=== PATIENT | female | born 1985 | race American Indian/Alaskan Native ===

== ENCOUNTER 2019-07-01 12:36 | Emergency (ER) | payer OTHER ==
[2019-07-01 12:53] VITALS: BP 109/51
--- NOTE | 2019-07-01 12:53 | Event Note ---
ED Screening Note Date of service: 07/01/19 Time: 12:53 ED Screening Note: This is a 33 y.o. F. that presents to the ER with right sided dental pain for 1. Patient states she woke up with right sided facial swelling. This initial assessment/diagnostic orders/clinical plan/treatment(s) is/are subject to change based on patients health status, clinical progression and re- assessment by fellow clinical providers in the ED. Further treatment and workup at subsequent clinical providers discretion. Patient/guardian urged not to elope from the ED as their condition may be serious if not clinically assessed and managed. Initial orders include:
--- NOTE | 2019-07-01 14:21 | Emergency Department Report ---
ED ENT HPI - General Chief complaint: Dental/Oral Stated complaint: TOOTHACHE PAIN Time Seen by Provider: 07/01/19 12:50 Source: patient Mode of arrival: Ambulatory Limitations: No Limitations - History of Present Illness Initial comments: 33-year-old female presents to ED with toothache. Patient states she has 2 broken molars on the right lower side. She reports she began having pain and swelling in that area since yesterday. Patient reports she called her dentist today, however did not get enhances so she decided to come to the ER. Patient denies fever. MD complaint: tooth pain -: days(s) (1) Location: tooth # (32, 30) Severity scale (0 -10): 3 Quality: aching Consistency: constant Improves with: none Worsens with: eating Context- Dental: history of dental caries Associated Symptoms: toothache. denies: fever, pain with swallowing, sore throat - Related Data Previous Rx's Medication Instructions Recorded Last Taken Type Amoxicillin [Trimox CAP] 500 mg PO BID #20 capsule 05/23/19 Unknown Rx traMADol [Ultram] 50 mg PO Q6HR PRN #10 tablet 05/23/19 Unknown Rx Naproxen [Naprosyn] 500 mg PO BID #20 tablet 07/01/19 Unknown Rx Penicillin V Potassium 500 mg PO TID 10 Days #30 tablet 07/01/19 Unknown Rx Allergies Allergy/AdvReac Type Severity Reaction Status Date / Time No Known Allergies Allergy Unverified 05/23/19 15:16 ED Dental HPI - General Chief complaint: Dental/Oral Stated complaint: TOOTHACHE PAIN Time Seen by Provider: 07/01/19 12:50 Source: patient Mode of arrival: Ambulatory Limitations: No Limitations - Related Data Previous Rx's Medication Instructions Recorded Last Taken Type Amoxicillin [Trimox CAP] 500 mg PO BID #20 capsule 05/23/19 Unknown Rx traMADol [Ultram] 50 mg PO Q6HR PRN #10 tablet 05/23/19 Unknown Rx Naproxen [Naprosyn] 500 mg PO BID #20 tablet 07/01/19 Unknown Rx Penicillin V Potassium 500 mg PO TID 10 Days #30 tablet 07/01/19 Unknown Rx Allergies Allergy/AdvReac Type Severity Reaction Status Date / Time No Known Allergies Allergy Unverified 05/23/19 15:16 ED Review of Systems ROS: Stated complaint: TOOTHACHE PAIN Other details as noted in HPI Comment: All other systems reviewed and negative Constitutional: denies: fever ENT: dental pain. denies: throat pain Respiratory: denies: shortness of breath Gastrointestinal: denies: vomiting ED Past Medical Hx - Past Medical History Previous Medical History?: No - Surgical History Past Surgical History?: No - Social History Smoking Status: Never Smoker Substance Use Type: None - Medications Home Medications: Home Medications Medication Instructions Recorded Confirmed Last Taken Type Amoxicillin [Trimox CAP] 500 mg PO BID #20 capsule 05/23/19 Unknown Rx traMADol [Ultram] 50 mg PO Q6HR PRN #10 tablet 05/23/19 Unknown Rx Naproxen [Naprosyn] 500 mg PO BID #20 tablet 07/01/19 Unknown Rx Penicillin V Potassium 500 mg PO TID 10 Days #30 tablet 07/01/19 Unknown Rx ED Physical Exam - General Limitations: No Limitations General appearance: alert, in no apparent distress - Head Head exam: Present: atraumatic, normocephalic - Eye Eye exam: Present: normal appearance - ENT ENT exam: Present: other (dental caries present teeth #32 and 30; #32 slightly tender to percussion; mild swelling to right angle of jaw; no submandibular/ submental induration; no elevatio of tongue; no signs of Agustín's angina) - Neck Neck exam: Present: normal inspection - Respiratory Respiratory exam: Present: normal lung sounds bilaterally. Absent: respiratory distress - Cardiovascular Cardiovascular Exam: Present: regular rate, normal rhythm - GI/Abdominal GI/Abdominal exam: Absent: distended - Extremities Exam Extremities exam: Present: normal inspection - Neurological Exam Neurological exam: Present: alert, oriented X3 - Psychiatric Psychiatric exam: Present: normal affect, normal mood - Skin Skin exam: Present: warm, dry, intact, normal color ED Course Vital Signs 07/01/19 12:51 Temperature 98.4 F Pulse Rate 64 Respiratory 16 Rate Blood Pressure 109/51 [Left] O2 Sat by Pulse 100 Oximetry Critical care attestation.: If time is entered above; I have spent that time in minutes in the direct care of this critically ill patient, excluding procedure time. ED Disposition Clinical Impression: Dental caries Disposition: - TO HOME OR SELFCARE Is pt being admited?: No Condition: Stable Instructions: Dental Caries (ED), Dental Abscess (ED), Toothache (ED) Prescriptions: Naproxen [Naprosyn] 500 mg PO BID #20 tablet Penicillin V Potassium 500 mg PO TID 10 Days #30 tablet Referrals: [facility] [Outside] - 3-5 Days Time of Disposition: 14:24
== END 2019-07-01 14:28 | disposition home or self-care (01) ==
LOC: ED 12:36
DX: K02.9 Dental caries, unspecified (principal); Z79.899 Other long term (current) drug therapy